=== PATIENT | male | born 1985 ===

== ENCOUNTER 2016-10-24 09:37 | Emergency (ER) | payer SELFPAY ==
--- NOTE | 2016-10-24 10:53 | ER PHYSICIAN DOCUMENTATION ---
Physician Documentation [facility] Name:Gianluca Garcia Age:31 yrs Sex:Male :1985 Arrival Date:10/24/2016 Time:09:37 Bed1 Private MD: Jacky Garcia Disposition: 10/24/16 10:42 Discharged to Home/Self Care. Impression: Dental Abscess. - Condition is Good. - Discharge Instructions: DENTAL ABSCESS. - Prescriptions for Clindamycin HCl 300 mg Oral Capsule - take 1 capsule by ORAL route every 6 hours for 10 days; 40 capsule. - Medical Reconciliation form form. - Follow up: Private, Dentist; When: 1 week; Reason: Continuance of care. Follow up: [facility]; When: 1 week; Reason: Continuance of care. - Problem is new. - Symptoms are unchanged. HPI: 10/24 10:11 This 31 yrs old Unknown Male presents to ER via Private Vehicle with complaints of sc Toothache. 10:11 The patient presents with pain, swelling. The problem is located in the left jaw. sc Onset: The symptom(s)/episode began/occurred 10 day(s) ago, and became worse today. Duration: The symptoms are continuous, and are steadily getting worse. Associated signs and symptoms: Pertinent negatives: anorexia, dysphagia, fever, inability to eat. Historical: - Allergies: No known drug Allergies; - Home Meds: 1. None - PMHx: None; - PSHx: Tonsillectomy; - Tetanus: < 10 years. - Ebola Screening: : Patient denies exposure to infectious person. Patient denies travel to an Ebola-affected area in the 21 days before illness onset. . - Social history: Smoking status: Patient uses tobacco products, current every day smoker. Patient uses alcohol marijuana. ROS: 10:11 ENT: Positive for dental pain. sc Exam: 10:42 Constitutional: This is a well developed, well nourished patient who is awake, alert, sc and in no acute distress. Head/Face: Normocephalic, atraumatic. Eyes: Pupils equal round and reactive to light, extra-ocular motions intact. Lids and lashes normal. Conjunctiva and sclera are non-icteric and not injected. Cornea within normal limits. Periorbital areas with no swelling, redness, or edema. Neck: Trachea midline, no thyromegaly or masses palpated, and no cervical lymphadenopathy. Supple, full range of motion without nuchal rigidity, or vertebral point tenderness. No meningismus. Cardiovascular: Regular rate and rhythm with a normal S1 and S2. No gallops, murmurs, or rubs. Normal PMI, no JVD. No pulse deficits. Respiratory: Lungs have equal breath sounds bilaterally, clear to auscultation and percussion. No rales, rhonchi or wheezes noted. No increased work of breathing, no retractions or nasal flaring. MS/ Extremity: Pulses equal, no cyanosis. Neurovascular intact. Full, normal range of motion, negative Homans's, calves equal bilaterally. 10:42 Neuro: Awake and alert, GCS 15, oriented to person, place, time, and situation. sc Cranial nerves II-XII grossly intact. Motor strength 5/5 in all extremities. Sensory grossly intact. Cerebellar exam normal. Normal gait. 10:42 ENT: Mouth: Oral mucosa: moist, Dental exam: dental caries, that is mild, fractured teeth are noted, specifically the lower left first molar (#19). Vital Signs: 09:58 BP 130 / 90; Pulse 76; Temp 98.5; Pulse Ox 92% on R/A; Pain 5/10; st MDM: 09:51 Patient medically screened. sc 10:43 Differential diagnosis: dental abscess. Data reviewed: vital signs, nurses notes, and sc as a result, I will discharge patient, administer antibiotics. Counseling: I had a detailed discussion with the patient and/or guardian regarding: the historical points, exam findings, and any diagnostic results supporting the discharge/admit diagnosis, the need for outpatient follow up, for a referral to a specialist. Dispensed Medications: No medications were administered Signatures: Michelle Bird RN RN st Chew, Scott, MD MD sc
--- NOTE | 2016-10-24 10:53 | ER NURSING DOCUMENTATION ---
Nurse's Notes [facility] Name:Gianluca Garcia Age:31 yrs Sex:Male :1985 Arrival Date:10/24/2016 Time:09:37 Bed1 Private MD: Diagnosis:Dental Abscess Presentation: 10/24 09:50 Presenting complaint: Patient states: pt has had a cracked tooth for 1.[address] pt noticed swelling in the left check and jaw line. Transition of care: Home. 09:50 Acuity: INOCENCIO 4 st 09:50 Method Of Arrival: Private Vehicle st Triage Assessment: 09:52 General: Appears in no apparent distress, Behavior is cooperative. Pain: Complains of st pain in left jaw Pain currently is 5 out of 10 on a pain scale. EENT: Reports left lower jaw pain and swelling. . Historical: - Allergies: No known drug Allergies; - Home Meds: 1. None - PMHx: None; - PSHx: Tonsillectomy; - Tetanus: < 10 years. - Ebola Screening: : Patient denies exposure to infectious person. Patient denies travel to an Ebola-affected area in the 21 days before illness onset. . - Social history: Smoking status: Patient uses tobacco products, current every day smoker. Patient uses alcohol marijuana. Screenin:59 Infectious Disease Risk None. Abuse screen: Denies threats or abuse. Denies injuries st from another. Nutritional screening: No deficits noted. Vital Signs: 09:58 BP 130 / 90; Pulse 76; Temp 98.5; Pulse Ox 92% on R/A; Pain 5/10; st ED Course: 09:45 Patient arrived in ED. ama 09:50 Michelle Bird RN is Primary Nurse. st 09:51 Jacky Boateng MD is Attending Physician. sc 09:[address] 09:59 Valuables Remains with patient Patient has correct armband on for positive st identification. 10:41 Private, Dentist is Referral Physician. sc 10:45 [facility] is Referral Physician. sc Administered Medications: No medications were administered Outcome: 10:42 Discharge ordered by MD. sc 10:51 Discharged to home ambulatory. st 10:51 Condition: stable 10:51 Discharge instructions given to patient, Instructed on discharge instructions, follow up and referral plans. medication usage, Prescriptions given X 1. 10:52 Patient [address] the ED. st Signatures: Michelle Bird, RN RN Jacky Loera MD MD sc Averdick, Andrew, Reg Reg ama
== END 2016-10-24 10:53 | disposition home or self-care (01) ==
LOC: ER 09:37
DX: K04.7 Periapical abscess without sinus (principal); K08.89 Other specified disorders of teeth and supporting structures; R22.0 Localized swelling, mass and lump, head; K03.81 Cracked tooth; K02.9 Dental caries, unspecified; F17.210 Nicotine dependence, cigarettes, uncomplicated
CPT/HCPCS: 99281